=== PATIENT | male | born 1995 | race African-American/Black ===

== ENCOUNTER 2025-02-12 17:45 | Emergency (ER) | payer OTHER ==
[~2025-02-12] VITALS: Ht 172.7 cm; Wt 80.0 kg
[2025-02-12 17:52] VITALS: O2SAT 99
[2025-02-12] MEDS: KETOROLAC 30MG/ML VIAL IM ONE (20:40)
[2025-02-12] MEDS: CYCLOBENZAPRINE 10MG TABLET PO ONE (20:40)
[2025-02-12] MEDS: LIDOCAINE 5% PATCH TOP SCH (20:41)
[2025-02-12] MEDS: HYDROCODONE/ACETAMINOPHEN 5/325MG TABLET PO ONE (21:45)
[2025-02-12] MEDS ORDERED: IBUP-2028 MT (21:46)
[2025-02-12] MEDS ORDERED: ACET-2708 MT (21:46)
[2025-02-12 22:41] VITALS: BP 136/81; PULSE 65; RESP 12; TEMP 37; O2SAT 100
== END 2025-02-12 22:45 | disposition home or self-care (01) ==
LOC: ER 17:57
DX: M79.18 Myalgia, other site (principal); V89.2XXA Person injured in unspecified motor-vehicle accident, traffic, initial encounter; Y93.89 Activity, other specified; Y92.89 Other specified places as the place of occurrence of the external cause; Y99.8 Other external cause status
CPT/HCPCS: 99284; 96372; J1885